=== PATIENT | male | born 1995 | race Caucasian/White ===

== ENCOUNTER 2023-10-29 07:50 | Outpatient (CLI) | payer BC, SELFPAY ==
--- OUTSIDE RECORDS SUMMARY | 2023-10-29 07:53 | XMS_ITS | Clinical Summary ---
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 We had discussed CT if symptoms worsened, he wants to pursue this now. CT STERNUM WO ordered. Other acne 07/18/2012 Immunizations Name Administration Dates Next Due Hepatitis A (Peds) 01/12/2013 Meningococcal Vaccine (Menveo) 01/12/2013 Tdap 01/10/2010 Social History Tobacco Use Types Packs/Day Years Used Date Smoking Tobacco: Former Cigarettes Q uit: 05/02/2016 Smokeless Tobacco: Never Tobacco Cessation:Counseling Given: No Alcohol Use Standard Drinks/Week Comments No 0 (1 standard drink = 0.6 oz pur e alcohol) Sex and Gender Information Value Date Recorded Sex Assigned at Not on file Gender Identity Not on file Sexual Orientation Not on file Obstetrics History Last Filed Vital Signs Vital Sign Reading Time Taken Comments Blood Pressure 120/72 11/01/2016 1:05 PM CDT Pulse 76 11/01/2016 1:05 PM CDT Temperature 36.4 ??C (97.6 ??F) 11/01/2016 1:05 PM CD T Respiratory Rate - - Oxygen Saturation 98% 11/01/2016 1:05 PM CDT Inhaled Oxygen Concentration - - Weight 58.8 kg (129 lb 11.2 oz) 11/01/2016 1:05 PM CDT Height 175 cm (5' 8.9) 11/01/2016 1:05 PM CDT Body Mass Index 19.21 11/01/2016 1:05 PM CDT Plan of Treatment Health Maintenance Due Date Last Done Comments HIV for age 15-65 10/08/2011 Hepatitis C screening for ag e 18-79 2014 Depression screening for age 12+ 07/03/2017 07/03/2016, 11/24/2015 BMI (ht and wt on same day) for age 18+ 11/01/2017 11/01/2016, 07/03/2016, 11/24/2015 Tetanus booster 01/11/2020 01/10/2010 COVID-19 vaccine series (2022- season) 2023 Influenza for age 9-49 01/19/2024 Tdap Completed 01/10/2010 Pneumococcal series for age 6-64 Aged Out No longer eligible b ased on patient's age to complete this topic Care Teams [employer] Relationship Specialty Start Date End Date Oli Torre MD PCP - General Family Practice 05/23/12
--- OUTSIDE RECORDS SUMMARY | 2023-10-29 07:53 | XMS_ITS | Clinical Summary ---
Author Organization [place] Address [address] [place] [address]. [place] [address] Care Team Providers Care Psych Tech Name Role Phone No Ref-Primary, Physician Primary Care Provider Minerva Helms MD Unavailable Allergies No known active allergies Medications Medication Sig Dispensed Refills Start Date End Date Status aluminum chloride (DRYSOL) 20 % external solutionIndications:Ax illary hyperhidrosis Apply topically at bedtime 60 mL 3 08/15/2023 Active Active Problems No known active problems Encounters Date Type Department Care Team Description 08/15/2023 1:30 PM CDT Office Visit [address] [address] Minerva Helms MD Routine history and physical examination of adult (Primary Dx); JESSICA (generalized anxiety disorder); Attention deficit hyperactivity disorder (ADHD), combined type; Axillary hyperhidrosis 08/15/2023 Travel from Last 3 Months Immunizations Name Administration Dates Next Due DTAP (<7y) 02/11/2002, 8,04/13/1997,02/10/1997, 1996 HEPA 01/12/2013 HIB (PRP-T) 05/03/1998,04/13/1997,02/10/1997 ,1996 HepB 07/13/1997,1996,1996 MMR 02/11/2002,01/26/1998 Meningococcal ACWY (Menactra??) 01/12/2013 Poliovirus, inactivated (IPV) 02/11/2002, 998,02/10/1997,1996 TDAP (Adacel,Boostrix) 01/10/2010 Varicella 05/20/1997 Family History Medical History Relation Comments Attention Deficit Disorder Brother Alcoholism Father Bladder Cancer Father Kidney Cancer Father Alzheimer Disease Maternal Grandfather Hypertension Maternal Grandmother Alcoholism Mother Attention Deficit Disorder Mother Skin Cancer Mother Cardiovascular Paternal Grandmother aneruysm Heart Disease Paternal Grandmother Melanoma Paternal Grandmother Relation Status Comments Brother Father Maternal Grandfather Maternal Grandmother Alive Mother Alive Paternal Grandfather Paternal Grandmother Social History Tobacco Use Types Packs/Day Years Used Date Smoking Tobacco: Former Cigarettes Passive Smoke Exposure: Past Smokeless Tobacco: Never Tobacco Cessation:Counseling Given: Not Answered Alcohol Use Standard Drinks/Week Comments No 0 (1 standard drink = 0.6 oz pur e alcohol) Social Connection and Isolation Panel [NHANES] A nswer Date Recorded Frequency of Communication with Friends and Fami ly Not on file 08/15/2023 How often do you get togethe r with friends or relatives? Three times a week 08/15/2023 Attends Buddhism Services Not on file 08/14 Active Member of Clubs or Organizations Not on f ile 08/15/2023 Attends Club or Organization Meetings Not on martita e 08/15/2023 Marital Status Not on file 08/15/2023 PHQ-2 Answer Date Recorded PHQ-2 Score 2 08/15/2023 [employer] [place] [facility] - Occupational Stress Questionnaire Answer Date Recorded Do you feel stress - tense, restless, nervous, or anxious, or unable to sleep at night because your mind is troubled all the time - these days? To some extent 08/15/2023 Exercise Vital Sign Answer Date Recorde d On average, how many days pe r week do you engage in moderate to strenuous exercise (like a brisk walk)? 6 days Minutes of Exercise per Session Not on file 08/15/2023 Adolescent Education Answer Date Record ed Getting School Help Needed Not on file 08/14 Food Insecurity Answer Date Recorded Within the past 12 months, d id you worry that your food would run out before you got money to buy more? No 08/15/2023 Within the past 12 months, d id the food you bought just not last and you didn? t have money to get more? No 08/15/2023 Housing Stability Answer Date Recorded Do you have housing? Yes 08/15/2023 Are you worried about losing your housing? No 08/15/2023 Financial Resource Strain Answer Date R ecorded Within the past 12 months, h ave you or your family members you live with been unable to get utilities (heat, electricity) when it was really needed? No 08/15/2023 Transportation Needs Answer Date Record ed Within the past 12 months, h as lack of transportation kept you from medical appointments, getting your medicines, non-medical meetings or appointments, work, or from getting things that you need? No 08/15/2023 Interpersonal Safety Answer Date Record ed Do you feel physically and e motionally safe where you currently live? Yes 08/15/2023 Within the past 12 months, h ave you been hit, slapped, kicked or otherwise physically hurt by someone? No 08/15/2023 Within the past 12 months, h ave you been humiliated or emotionally abused in other ways by your partner or ex-partner? No 08/15/2023 Sex and Gender Information Value Date Recorded Sex Assigned at Not on file Gender Identity Not on file Sexual Orientation Not on file Last Filed Vital Signs Vital Sign Reading Time Taken Comments Blood Pressure 124/74 08/15/2023 1:25 PM CDT Pulse 84 08/15/2023 1:25 PM CDT Temperature 36.5 ??C (97.7 ??F) 08/15/2023 1:25 PM CD T Respiratory Rate 18 08/15/2023 1:25 PM CDT Oxygen Saturation 100% 08/15/2023 1:25 PM CDT Inhaled Oxygen Concentration - - Weight 59.1 kg (130 lb 3.2 oz) 08/15/2023 1:25 P M CDT Height 177.2 cm (5' 9.75) 08/15/2023 1:25 PM CD T Body Mass Index 18.82 08/15/2023 1:25 PM CDT Plan of Treatment Health Maintenance Due Date Last Done Comments ADVANCE CARE PLANNING 1996 ANNUAL REVIEW OF HM ORDERS 1996 DTAP/TDAP/TD IMMUNIZATION (7 - Td or Tdap) 01/11/2020 01/10/2010, 02/11/2002, 05/03/1998, Additional history exists COVID-19 Vaccine ( season) 2023 INFLUENZA VACCINE (Season Ended) 2024 YEARLY PREVENTIVE VISIT 08/14/2024 08/15/2023, 01/12 HEPATITIS B IMMUNIZATION Completed 998, 1996, 1996 IPV IMMUNIZATION Completed 02/11/2002, , 02/10/1997, Additional history exists MENINGITIS IMMUNIZATION Completed 01/12/2013, 01/12 HEPATITIS C SCREENING Completed 08/15/2023 HIV SCREENING Completed 08/15/2023 PHQ-2 (once per calendar year) Completed 08/15/2023, 08/15/2023 HPV IMMUNIZATION Aged Out No longer e ligible based on patient's age to complete this topic Pneumococcal Vaccine: Pediatrics (0 to 5 Years) and At-Risk Patients (6 to 64 Years) Aged Out No longer eligible based on patient's age to complete this topic RSV MONOCLONAL ANTIBODY Aged Out No l onger eligible based on patient's age to complete this topic Procedures Procedure Name Priority Date/Time Associated Diagnosis Comments CBC WITH PLATELETS & DIFFERENTIAL Routine 08/15/2023 2:17 PM CDT Routine history and physical examination of adult CBC WITH PLATELETS AND DIFFERENTIAL Routine 08/15/2023 2:17 PM CDT Routine history and physical examination of adult TSH WITH FREE T4 REFLEX Routine 08/15/2023 2:17 PM CDT Routine history and physical examination of adult LIPID REFLEX TO DIRECT LDL PANEL Routine 08/15/2023 2:17 PM CDT Routine history and physical examination of adult HEPATITIS C SCREEN REFLEX TO HCV RNA QUANT AND GENOTYPE Routine 08/15/2023 2:17 PM CDT Routine history and physical examination of adult HIV ANTIGEN ANTIBODY COMBO Routine 08/15/2023 2:17 PM CDT Routine history and physical examination of adult COMPREHENSIVE METABOLIC PANEL Routine 08/15/2023 2:17 PM CDT Routine history and physical examination of adult from Last 3 Months Results * CBC with platelets and differential (08/15/2023 2:17 PM CDT) WBC Count 5.6 4.0 - 11.0 10e3/uL 08/15/2023 2:20 PM CDT [facility] RBC Count 5.40 4.40 - 5.90 10e6/uL 08/15/2023 2:20 PM CDT [facility] Hemoglobin 15.7 13.3 - 17.7 g/dL 08/15/2023 2:20 PM CDT [facility] Hematocrit 46.2 40.0 - 53.0 % 08/15/2023 2:20 PM CDT [facility] MCV 86 78 - 100 fL 08/15/2023 2:20 PM CDT [facility] MCH 29.1 26.5 - 33.0 pg 08/15/2023 2:20 PM CDT [facility] MCHC 34.0 31.5 - 36.5 g/dL 08/15/2023 2:20 PM CDT [facility] RDW 12.1 10.0 - 15.0 % 08/15/2023 2:20 PM CDT [facility] Platelet Count 203 150 - 450 10e3/uL 08/15/2023 2:20 PM CDT [facility] % Neutrophils 47 % 08/15/2023 2:20 PM CDT [facility] % Lymphocytes 39 % 08/15/2023 2:20 PM CDT [facility] % Monocytes 8 % 08/15/2023 2:20 PM CDT [facility] % Eosinophils 6 % 08/15/2023 2:20 PM CDT [facility] % Basophils 1 % 08/15/2023 2:20 PM CDT [facility] % Immature Granulocytes 0 % 08/15/2023 2:20 PM CDT [facility] Absolute Neutrophils 2.6 1.6 - 8.3 10e3/uL 08/15/2023 2:20 PM CDT [facility] Absolute Lymphocytes 2.2 0.8 - 5.3 10e3/uL 08/15/2023 2:20 PM CDT [facility] Absolute Monocytes 0.4 0.0 - 1.3 10e3/uL 08/15/2023 2:20 PM CDT [facility] Absolute Eosinophils 0.3 0.0 - 0.7 10e3/uL 08/15/2023 2:20 PM CDT [facility] Absolute Basophils 0.0 0.0 - 0.2 10e3/uL 08/15/2023 2:20 PM CDT LABORATORY Absolute Immature Granulocytes 0.0 <=0.4 10e3/uL 08/15/2023 2:20 PM CDT [facility] Blood BLOOD SPECIMEN / Unknown Venipuncture / Unknown 08/15/2023 2:17 PM CDT 08/15/2023 2:17 PM CDT Minerva Helms MD LAB - BLOOD ORDERABL ES LAB[facility]AT[facility] [place] [facility] [address] [facility] (no room number, 1st floor of clinic) [place] [address] * HIV Antigen Antibody Combo (08/15/2023 2:17 PM CDT) HIV Antigen Antibody Combo Nonreactive Nonreactive 08/16/2023 12:10 AM CDT [facility] Comment:Negative HIV-1 p24 a ntigen and HIV-1/2 antibody screening test results usually indicate the absence of HIV-1 and HIV-2 infection. However, such negative results do not rule-out acute HIV infection. If acute HIV-1 or HIV-2 infection is suspected, detection of HIV-1 or HIV-2 RNA is recommended. Blood BLOOD SPECIMEN / Unknown Venipuncture / Unknown 08/15/2023 2:17 PM CDT 08/15/2023 2:17 PM CDT Minerva Helms MD LAB - BLOOD ORDERABL ES [facility] [address] [facility], [address] [place] [address], [facility] * Hepatitis C Screen Reflex to HCV RNA Quant and Genotype (08/15/2023 2:17 PM CDT) Hepatitis C Antibody Nonreactive Nonreactive 08/15/2023 11:11 PM CDT [facility] Comment:A nonreactive screen ing test result does not exclude the possibility of exposure to or infection with HCV. Nonreactive screening test results in individuals with prior exposure to HCV may be due to antibody levels below the limit of detection of this assay or lack of reactivity to the HCV antigens used in this assay. Patients with recent HCV infections (<3 months from time of exposure) may have false- negative HCV antibody results due to the time needed for seroconversion (average of 8 to 9 weeks). Blood BLOOD SPECIMEN / Unknown Venipuncture / Unknown 08/15/2023 2:17 PM CDT 08/15/2023 2:17 PM CDT Minerva Helms MD LAB - BLOOD ORDERABL ES Performing Organization Address City/[facility]/ZIP Co de Phone Number [facility] [address] [facility], [address] * TSH with free T4 reflex (08/15/2023 2:17 PM CDT) TSH 0.85 0.30 - 4.20 uIU/mL 08/15/2023 11:09 PM CDT [facility] Blood BLOOD SPECIMEN / Unknown Venipuncture / Unknown 08/15/2023 2:17 PM CDT 08/15/2023 2:17 PM CDT Minerva Helms MD LAB - BLOOD ORDERABL ES [facility] [address] [facility], [address] * Lipid panel reflex to direct LDL Non-fasting (08/15/2023 2:17 PM CDT) Cholesterol 172 <200 mg/dL 08/15/2023 11:09 PM CDT [facility] Triglycerides 38 <150 mg/dL 08/15/2023 11:09 PM CDT [facility] Direct Measure HDL 66 >=40 mg/dL 2023 11:09 PM CDT [facility] LDL Cholesterol Calculated 98 <=100 mg/dL 08/15/2023 11:09 PM CDT [facility] Non HDL Cholesterol 106 <130 mg/dL 08/15/2023 11:09 PM CDT [facility] Patient Fasting > 8hrs? No 08/15/2023 11:09 PM CDT [facility] Blood BLOOD SPECIMEN / Unknown Venipuncture / Unknown 08/15/2023 2:17 PM CDT 08/15/2023 2:17 PM CDT Narrative [facility] - 08/15/2023 11:09 PM CDT Cholesterol Desirable: ??<200 mg/dL Triglycerides Normal: ??Less than 150 mg/dL Borderline High: ??150-199 mg/dL High: ??200-499 mg/dL Very High: ??Greater than or equal to 500 mg/dL Direct Measure HDL Female: ??Greater than or equal to 50 mg/dL Male: ??Greater than or equal to 40 mg/dL LDL Cholesterol Desirable: ??<100mg/dL Above Desirable: ??100-129 mg/dL Borderline High: ??130-159 mg/dL High: ??160-189 mg/dL Very High: ??>= 190 mg/dL Non HDL Cholesterol Desirable: ??130 mg/dL Above Desirable: ??130-159 mg/dL Borderline High: ??160-189 mg/dL High: ??190-219 mg/dL Very High: ??Greater than or equal to 220 mg/dL Minerva Helms MD LAB - BLOOD ORDERABL ES [facility] [address] [facility], [address] [place] [address] * (ABNORMAL) Comprehensive metabolic panel (BMP + Alb, Alk Phos, ALT, AST, Total. Bili, TP) (08/15/2023 2:17 PM CDT) Sodium 139 135 - 145 mmol/L 08/15/2023 11:09 PM CDT [facility] Comment:Reference intervals for this test were updated on 02/12/2023 to more accurately reflect our healthy population. There may be differences in the flagging of prior results with similar values performed with this method. Interpretation of those prior results can be made in the context of the updated reference intervals. Potassium 3.9 3.4 - 5.3 mmol/L 08/15/2023 11:09 PM CDT [facility] Carbon Dioxide (CO2) 28 22 - 29 mmol/L 08/15/2023 11:09 PM CDT [facility] Anion Gap 10 7 - 15 mmol/L 08/15/2023 11:09 PM CDT [facility] Urea Nitrogen 11.6 6.0 - 20.0 mg/dL 08/15/2023 11:09 PM CDT [facility] Creatinine 0.81 0.67 - 1.17 mg/dL 08/15/2023 11:09 PM CDT [facility] GFR Estimate >90 >60 mL/min/1. 73m2 08/15/2023 11:09 PM CDT [facility] Calcium 9.7 8.6 - 10.0 mg/dL 08/15/2023 11:09 PM CDT [facility] Chloride 101 98 - 107 mmol/L 08/15/2023 11:09 PM CDT [facility] Glucose 102(H) 70 - 99 mg/dL 08/15/2023 11:09 PM CDT [facility] Alkaline Phosphatase 77 40 - 150 U/L 08/15/2023 11:09 PM CDT [facility] Comment:Reference intervals for this test were updated on 04/02/2023 to more accurately reflect our healthy population. There may be differences in the flagging of prior results with similar values performed with this method. Interpretation of those prior results can be made in the context of the updated reference intervals. AST 24 0 - 45 U/L 08/15/2023 11:09 PM CDT [facility] Comment:Reference intervals for this test were updated on 10/29/2022 to more accurately reflect our healthy population. There may be differences in the flagging of prior results with similar values performed with this method. Interpretation of those prior results can be made in the context of the updated reference intervals. ALT 20 0 - 70 U/L 08/15/2023 11:09 PM CDT [facility] Comment:Reference intervals for this test were updated on 10/29/2022 to more accurately reflect our healthy population. There may be differences in the flagging of prior results with similar values performed with this method. Interpretation of those prior results can be made in the context of the updated reference intervals. Protein Total 7.7 6.4 - 8.3 g/dL 08/15/2023 11:09 PM CDT [facility] Albumin 4.9 3.5 - 5.2 g/dL 08/15/2023 11:09 PM CDT [facility] Bilirubin Total 1.0 <=1.2 mg/dL 08/15/2023 11:09 PM CDT [facility] Blood BLOOD SPECIMEN / Unknown Venipuncture / Unknown 08/15/2023 2:17 PM CDT 08/15/2023 2:17 PM CDT Minerva Helms MD LAB - BLOOD ORDERABL ES [facility] [address] [facility], [address] [place] [address] from Last 3 Months Care Teams Psych Tech Relationship Specialty Start Date End Date No Ref-Primary, Physician PCP - General 06/27/23 Minerva Helms MD [address] [place] [address] Assigned PCP 09/10/23
--- OUTSIDE RECORDS SUMMARY | 2023-10-29 07:53 | XMS_ITS | Encounter Summary ---
Author Organization [facility] Address [address] [place] [address]. [place] [address] Care Team Providers Care Pot Firer Name Role Phone No Ref-Primary, Physician Primary Care Provider Reason for Referral * Mental Health Outpatient (Routine: Next available opening) - Pending Review Specialty Diagnoses / Procedures Referred By Contac t Referred To Contact Behavioral Health Diagnoses JESSICA (generalized anxiety disorder) Minerva Helms MD [address] [place] [address] Referral ID Status Reason Start Date Expiration Date V isits Requested Visits Authorized [id number] Pending Review 08/15/2023 08/14/2024 1 1 Question Answer Services: Psychiatry/Med Management Reason for Referral - REVIEW REFERENCE LINK BELOW: Short-term consultation & return to PCP/Collaborative Care (CCPS) My Clinical Question Is: wants to see a psychiatrist for anxiety/adhd Scheduling Instructions: [facility] will call you to coordinate your care as prescribed by your provider. If you don't hear from a farm loan representative within 2 business days, please call . Comments Please be aware that coverage of these services is subject to the terms and limitations of your health insurance plan. Call member services at your health plan with any benefit or coverage questions. [facility] will call you to coordinate your care as prescribed by your provider. If you don't hear from a farm loan representative within 2 business days, please call . * Mental Health Outpatient (Routine: Next available opening) - Pending Review Specialty Diagnoses / Procedures Referred By Ruth t Referred To Contact Behavioral Health Diagnoses Attention deficit hyperactivity disorder (ADHD), combined type Minerva Helms MD [address] [place] [address] Referral ID Status Reason Start Date Expiration Date V isits Requested Visits Authorized [id number] Pending Review 08/15/2023 08/14/2024 1 1 Question Answer Services: Psychological Testing Reason for Referral - REVIEW REFERENCE LINK BELOW: ADHD Scheduling Instructions: [facility] will call you to coordinate your care as prescribed by your provider. If you don't hear from a farm loan representative within 2 business days, please call . Is this referral for Insurance purposes only? (Only select yes if the patient has already been scheduled at an external location. If yes is selected, the referral will NOT reoute to scheduling). No Comments Please be aware that coverage of these services is subject to the terms and limitations of your health insurance plan. Call member services at your health plan with any benefit or coverage questions. [facility] will call you to coordinate your care as prescribed by your provider. If you don't hear from a farm loan representative within 2 business days, please call . Reason for Visit * Reason Comments Establish Care Anxiety Encounter Details Date Type Department Care Team (Late st Contact Info) Description 08/15/2023 1:30 PM CDT Office Visit [facility] [address] [place] [id number] Minerva Helms MD [address] [place] [id number] Routine history and physical examination of adult (Primary Dx); JESSICA (generalized anxiety disorder); Attention deficit hyperactivity disorder (ADHD), combined type; Axillary hyperhidrosis Social History Tobacco Use Types Packs/Day Years [...] relatives? Three times a week 08/15/2023 Attends Spiritism Services Not on file 08/14 Active Member of Clubs or Organizations Not on f ile 08/15/2023 Attends Club or Organization Meetings Not on martita e 08/15/2023 Marital Status Not on file 08/15/2023 PHQ-2 Answer Date Recorded PHQ-2 Score 2 08/15/2023 [facility] - Occupational Stress [...] on file Sexual Orientation Not on file documented as of this encounter Last Filed Vital Signs Vital Sign Reading [...] Mass Index 18.82 08/15/2023 1:25 PM CDT documented in this encounter Progress Notes * Minerva Helms MD - 08/15/2023 1:30 PM CDT Preventive Care Visit [facility] Minerva Helms MD, Internal Medicine Aug 15, 2023 Assessment & Plan Routine history and physical examination of adult - Comprehensive metabolic panel (BMP + Alb, Alk Phos, ALT, AST, Total. Bili, TP); Future - HIV Antigen Antibody Combo; Future - Hepatitis C Screen Reflex to HCV RNA Quant and Genotype; Future - CBC with platelets and differential; Future - Lipid panel reflex to direct LDL Non-fasting; Future - TSH with free T4 reflex; Future - Comprehensive metabolic panel (BMP + Alb, Alk Phos, ALT, AST, Total. Bili, TP) - HIV Antigen Antibody Combo - Hepatitis C Screen Reflex to HCV RNA Quant and Genotype - CBC with platelets and differential - Lipid panel reflex to direct LDL Non-fasting - TSH with free T4 reflex JESSICA (generalized anxiety disorder) Does not want to take wellbutrin at this time and wants to see a psychiatrist. - Adult Mental Health Crackling Press Operator Referral; Future Attention deficit hyperactivity disorder (ADHD), combined type - Adult Mental Health Crackling Press Operator Referral; Future Axillary hyperhidrosis - aluminum chloride (DRYSOL) 20 % external solution; Apply topically at bedtime Counseling Appropriate preventive services were discussed with this patient, including applicable screening asappropriate for fall prevention, nutrition, physical activity, Tobacco-use cessation, weight loss and cognition. Checklist reviewing preventive services available has been given to the patient. Reviewed patient's diet, addressing concerns and/or questions. The patient was instructed to see the dentist every 6 months. The patient's PHQ-9 score is consistent with mild depression. He was provided with information regarding depression. Jackie Barrett is a 27 year old, presenting for the following: Establish Care and Anxiety 08/15/2023 1:23 PM Additional Questions Roomed by Anita GREWAL Health Care Directive Patient does not have a Health Care Directive or Living Will: Physical Exam No insurance until now due to dad's illness. Dad from cancer last week. Trouble focusing and anxiety. Patient knows that he has ADHD. Dropped out of high school. Anxiety 08/15/2023 General Health How would you rate your overall physical health? Good Feel stress (tense, anxious, or unable to sleep) To some extent (!) STRESS CONCERN 08/15/2023 Nutrition Three or more servings of calcium each day? Yes Diet: Other If other, please elaborate: i used to vegeterian and now i back eating meat How many servings of fruit and vegetables per day? 4 or more How many sweetened beverages each day? 0-1 08/15/2023 Exercise Days per week of moderate/strenous exercise 6 days 08/15/2023 Social Factors Frequency of gathering with friends or relatives Three times a week Worry food won't last until get money to buy more No Food not last or not have enough money for food? No Do you have housing? Yes Are you worried about losing your housing? No Lack of transportation? No Unable to get utilities (heat,electricity)? No 08/15/2023 Dental Dentist two times every year? (!) NO 08/15/2023 TB Screening Were you born outside of the [place]? No Today's PHQ-2 Score: 08/15/2023 1:18 PM PHQ-2 (??1998 [employer]) Q1: Little interest or pleasure in doing things 1 Q2: Feeling down, depressed or hopeless 1 PHQ-2 Score 2 Q1: Little interest or pleasure in doing things Several days Q2: Feeling down, depressed or hopeless Several days PHQ-2 Score 2 08/15/2023 Substance Use Alcohol more than 3/day or more than 7/wk No Do you use any other substances recreationally? (!) CANNABIS PRODUCTS (!) KRATOM Social History Tobacco Use Smoking status: Former Types: Cigarettes Passive exposure: Past Smokeless tobacco: Never Vaping Use Vaping Use: Never used Substance Use Topics Alcohol use: No Drug use: No 08/15/2023 STI Screening New sexual partner(s) since last STI/HIV test? (!) YES 08/15/2023 Contraception/Family Planning Questions about contraception or family planning No Reviewed and updated as needed this visit by Provider Review of Systems Constitutional, HEENT, cardiovascular, pulmonary, GI, , musculoskeletal, neuro, skin, endocrine and psych systems are negative, except as otherwise noted. Objective Exam BP 124/74 (BP Location: Right arm, Patient Position: Sitting, Cuff Size: Adult Regular) Pulse 84 Temp 97.7 ??F (36.5 ??C) (Oral) Resp 18 Ht 1.772 m (5' 9.75) Wt 59.1 kg (130 lb 3.2 oz) SpO2 100% BMI 18.82 kg/m?? Estimated body mass index is 18.82 kg/m?? as calculated from the following: Height as of this encounter: 1.772 m (5' 9.75). Weight as of this encounter: 59.1 kg (130 lb 3.2 oz). Physical Exam Constitutional: Appearance: Normal appearance. HENT: Head: Normocephalic and atraumatic. Right Ear: Tympanic membrane, ear canal and external ear normal. Left Ear: Tympanic membrane, ear canal and external ear normal. Nose: Nose normal. Mouth/Throat: Mouth: Mucous membranes are moist. Pharynx: Oropharynx is clear. Eyes: Extraocular Movements: Extraocular movements intact. Conjunctiva/sclera: Conjunctivae normal. Pupils: Pupils are equal, round, and reactive to light. Cardiovascular: Rate and Rhythm: Normal rate and regular rhythm. Pulses: Normal pulses. Heart sounds: Normal heart sounds. Pulmonary: Effort: Pulmonary effort is normal. Breath sounds: Normal breath sounds. Abdominal: General: Abdomen is flat. Bowel sounds are normal. Palpations: Abdomen is soft. Musculoskeletal: General: Normal range of motion. Cervical back: Normal range of motion and neck supple. Skin: General: Skin is warm. Capillary Refill: Capillary refill takes less than 2 seconds. Neurological: General: No focal deficit present. Mental Status: He is alert and oriented to person, place, and time. Mental status is at baseline. Psychiatric: Mood and Affect: Mood and affect normal. Speech: Speech normal. Behavior: Behavior normal. Behavior is cooperative. Thought Content: Thought content normal. Cognition and Memory: Cognition normal. Judgment: Judgment normal. Signed Electronically by: Minerva Helms MD documented in this encounter Plan of Treatment Scheduled Referrals Name Type Priority Associated Diagnoses Orde r Schedule Adult Mental Health Crackling Press Operator Referral Referral Routine: Next available opening Attention Deficit Hyperactivity Disorder (Adhd), Combined Type Expected: 08/15/2023 (Approximate), Expires: 08/14/2024 Adult Mental Health Crackling Press Operator Referral Referral Routine: Next available opening JESSICA (generalized anxiety disorder) Expected: 08/15/2023 (Approximate), Expires: 08/14/2024 documented as of this encounter Procedures Procedure Name Priority Date/Time Associated Diagnosis Comments CBC WITH PLATELETS AND DIFFERENTIAL Routine 08/15/2023 2:17 PM CDT Routine history and physical examination of adult HIV ANTIGEN ANTIBODY COMBO Routine 08/15/2023 2:17 PM CDT Routine history and physical examination of adult HEPATITIS C SCREEN REFLEX TO HCV RNA QUANT AND GENOTYPE Routine 08/15/2023 2:17 PM CDT Routine history and physical examination of adult CBC WITH PLATELETS & DIFFERENTIAL Routine 08/15/2023 [...] Routine history and physical examination of adult documented in this encounter Results * CBC with platelets and differential (08/15/2023 2:17 PM CDT) [facility] WBC Count 5.6 4.0 - 11.0 10e3/uL [...] - 0.2 10e3/uL 08/15/2023 2:20 PM CDT [facility] Absolute Immature Granulocytes 0.0 <=0.4 10e3/uL 08/15/2023 2:20 PM CDT [facility] Blood BLOOD SPECIMEN / Unknown Venipuncture / Unknown 08/15/2023 2:17 PM CDT 08/15/2023 2:17 PM CDT Minerva Helms MD LAB - BLOOD ORDERABL ES LABORATORY [facility] [place] [facility] [address] [facility] (no room number, 1st floor of clinic) [place] [address], [facility] * TSH with free T4 reflex (08/15/2023 2:17 PM CDT) TSH 0.85 0.30 - 4.20 uIU/mL 08/15/2023 11:09 PM CDT [facility] Blood BLOOD SPECIMEN / Unknown Venipuncture / Unknown 08/15/2023 2:17 PM CDT 08/15/2023 2:17 PM CDT Minerva Helms MD LAB - BLOOD ORDERABL ES [facility] [place] [facility] [address] [facility], [address] [place] [address], [facility] * Lipid panel reflex to direct LDL [...] LAB - BLOOD ORDERABL ES [facility] [place] [facility] [address] [facility], [address] [place] [address], [facility] * Hepatitis C Screen Reflex to HCV RNA Quant and Genotype (08/15/2023 2:17 PM CDT) Hepatitis C Antibody Nonreactive Nonreactive 08/15/2023 11:11 PM CDT U [facility] Comment:A nonreactive screen ing test result [...] - BLOOD ORDERABL ES Performing Organization Address [facility] de Phone Number LABORATORY [facility] [place] [facility] [address] [place] [address], [facility] [address] [phone] * HIV Antigen Antibody Combo (08/15/2023 2:17 PM CDT) [facility] HIV Antigen Antibody Combo Nonreactive Nonreactive 08/16/2023 12:10 AM CDT [facility] Comment:Negative HIV-1 p24 a ntigen and [...] - BLOOD ORDERABL ES Performing Organization Address [facility] Co de Phone Number LABORATORY [facility] [place] [facility] [address], [address] [address] * (ABNORMAL) Comprehensive metabolic panel (BMP + Alb, Alk Phos, ALT, AST, Total. Bili, TP) (08/15/2023 2:17 PM CDT) [facility] Sodium 139 135 - 145 mmol/L 08/15/2023 [...] LAB - BLOOD ORDERABL ES [facility] LAB[facility]ATORY [facility] [place] [facility] [address] [facility] [address], [address] [place] [address] documented in this encounter Visit Diagnoses Diagnosis Routine history and physical examination of adult- Primary Routine general medical examination at a health care facility JESSICA (generalized anxiety disorder) Generalized anxiety disorder Attention deficit hyperactivity disorder (ADHD), combined type Axillary hyperhidrosis Primary focal hyperhidrosis documented in this encounter Additional Health Concerns Assessment Noted Time PHQ-9 Depression Total Score: 9 08/15/19 24 1:58 PM CDT documented as of this encounter Care Teams Pot Firer Relationship Specialty Start Date End Date No Ref-Primary, Physician PCP - General 06/27/23 documented as of this encounter
--- OUTSIDE RECORDS SUMMARY | 2023-10-29 07:53 | XMS_ITS | Encounter Summary ---
Author Organization [facility] Address [address] [place] [address]. [place] [address] Care Team Providers Care Artifacts Conservator Name Role Phone No Ref-Primary, Physician Primary Care Provider Encounter Details Date Type Department Care Team (Latest Contact Info) Description 08/15/2023 Travel Social History Tobacco Use Types Packs/Day Years Used Date Smoking Tobacco: Former Cigarettes Passive Smoke Exposure: Past Smokeless Tobacco: Never Alcohol Use Standard Drinks/Week Comments No 0 (1 standard drink = 0.6 oz pur e alcohol) Social Connection and Isolation Panel [NHANES] A nswer Date Recorded Frequency of Communication with Friends and Fami ly Not on file 08/15/2023 How often do you get togethe r with friends or relatives? Three times a week 08/15/2023 Attends Yazidism Services Not on file 08/14 Active Member of Clubs or Organizations Not on f ile 08/15/2023 Attends Club or Organization Meetings Not on martita e 08/15/2023 Marital Status Not on file 08/15/2023 PHQ-2 Answer Date Recorded PHQ-2 Score 2 08/15/2023 [facility] Occupat ional Health - Occupational Stress [...] on file documented as of this encounter Plan of Treatment Not on file documented as of this encounter Visit Diagnoses Not on filedocumented in this encounter Additional Health Concerns Assessment Noted Time PHQ-9 Depression Total Score: 9 08/15/19 24 1:58 PM CDT documented as of this encounter Care Teams Artifacts Conservator Relationship Specialty Start Date End Date No Ref-Primary, Physician PCP - General 06/27/23 documented as of this encounter
--- OUTSIDE RECORDS SUMMARY | 2023-10-29 07:53 | XMS_ITS | Referral Summary ---
Author Organization [facility] Address [address] [place] [address]. [place] [address] Care Team Providers Care Viscose Cellar Charge Hand Name Role Phone No Ref-Primary, Physician Primary Care Provider Minerva Helms MD Unavailable Encounters Date Type Department Care Team Description 08/15/2023 Travel 08/15/2023 1:30 PM CDT Office Visit [address] [address] Minerva Helms MD Routine history and physical examination of adult (Primary Dx); JESSICA (generalized anxiety disorder); Attention deficit hyperactivity disorder (ADHD), combined type; Axillary hyperhidrosis from Last 3 Months Allergies No known active allergies Medications Medication Sig Dispensed Refills Start Date End Date Status aluminum chloride (DRYSOL) 20 % external solutionIndications:Ax illary hyperhidrosis Apply topically at bedtime 60 mL 3 08/15/2023 Active Active Problems No known active problems Immunizations Name Administration Dates Next Due DTAP (<7y) 02/11/2002, 8,04/13/1997,02/10/1997, 1996 HEPA 01/12/2013 HIB (PRP-T) 05/03/1998,04/13/1997,02/10/1997 ,1996 HepB 07/13/1997,1996,1996 MMR 02/11/2002,01/26/1998 Meningococcal ACWY (Menactra??) 01/12/2013 Poliovirus, inactivated (IPV) 02/11/2002, 998,02/10/1997,1996 TDAP (Adacel,Boostrix) 01/10/2010 Varicella 05/20/1997 Social History Tobacco Use Types Packs/Day Years [...] relatives? Three times a week 08/15/2023 Attends Catholic Services Not on file 08/14 Active Member of Clubs or Organizations Not on f ile 08/15/2023 Attends Club or Organization Meetings Not on martita e 08/15/2023 Marital Status Not on file 08/15/2023 PHQ-2 Answer Date Recorded PHQ-2 Score 2 08/15/2023 [facility] Occupat ional Health - Occupational Stress [...] 08/15/2023 1:25 PM CDT Plan of Treatment Not on file Procedures Procedure Name Priority Date/Time Associated Diagnosis [...] MD LAB - BLOOD ORDERABL ES LABORATORY [facility] [place] [facility] [address] [facility] (no room number, 1st floor of clinic) [place] [address], [facility] * HIV Antigen Antibody Combo (08/15/2023 2:17 PM CDT) [facility] HIV Antigen Antibody Combo Nonreactive Nonreactive 08/16/2023 [...] LAB - BLOOD ORDERABL ES U LABORATORY [facility] [place] [facility] [address] [facility], [address] [phone] * Hepatitis C Screen Reflex [...] - BLOOD ORDERABL ES Performing Organization Address City[facility]/ZIP Co de Phone Number U LAB[facility]ATORY [facility] [place] [facility] [address] [facility], [address] [address] * TSH with free T4 reflex (08/15/2023 2:17 PM CDT) TSH 0.85 0.30 - 4.20 uIU/mL 08/15/2023 11:09 PM CDT [facility] Blood BLOOD SPECIMEN / Unknown Venipuncture / Unknown 08/15/2023 2:17 PM CDT 08/15/2023 2:17 PM CDT Minerva Helms MD LAB - BLOOD ORDERABL ES U LABORATORY [facility] [place] [facility] [address] [facility], [address] [place] [address] * Lipid panel reflex to [...] LAB - BLOOD ORDERABL ES [facility] LABORATORY [facility] [place] [facility] [address] [facility], [address] [place] [phone] * (ABNORMAL) Comprehensive metabolic panel (BMP + Alb, Alk Phos, ALT, AST, Total. Bili, TP) (08/15/2023 2:17 PM CDT) [facility] Sodium 139 135 - 145 mmol/L 08/15/2023 [...] LAB - BLOOD ORDERABL ES [facility] LABORATORY [facility] [place] [facility] [address] [facility], [address] [place] [address] from Last 3 Months Care Teams Viscose Cellar Charge Hand Relationship Specialty Start Date End Date No Ref-Primary, Physician PCP - General 06/27/23 Minerva Helms MD [address] [place] [address] Assigned PCP 09/10/23
== END 2023-10-29 07:51 | disposition home or self-care (01) ==
PROVIDERS: PCP Family Medicine; Visit Provider Family Medicine
DX: Z00.00 Encounter for general adult medical examination without abnormal findings (principal); R63.6 Underweight; Z13.1 Encounter for screening for diabetes mellitus
CPT/HCPCS: 82947; 84403

== ENCOUNTER 2024-11-17 08:55 | Outpatient (CLI) | payer BC, SELFPAY | END 2024-11-17 08:56 | disposition home or self-care (01) | PROVIDERS: PCP Internal Medicine; Visit Provider Internal Medicine | DX: Z00.00 Encounter for general adult medical examination without abnormal findings (principal); R63.6 Underweight; Z13.6 Encounter for screening for cardiovascular disorders | CPT/HCPCS: 80053; 80061 ==

== ENCOUNTER 2025-02-11 09:12 | Outpatient (CLI) | payer BC, SELFPAY | END 2025-02-11 09:13 | disposition home or self-care (01) | PROVIDERS: PCP Internal Medicine; Visit Provider Internal Medicine | DX: R53.83 Other fatigue (principal) | CPT/HCPCS: 82306; 82525; 82607; 82728; 83540; 83550; 83735; 84630 ==